=== PATIENT | female | born 1965 | race Caucasian/White ===

== ENCOUNTER → 2018-05-31 | Outpatient (CLI) | payer OTHER ==
[2018-05-31 14:24] VITALS: BP 117/72; PULSE 67; TEMP 98.1; BMI 66.1
--- NOTE | 2018-05-31 15:21 | P.HPOB ---
History of Present Illness H&P Date: 05/31/18 Chief Complaint: The patient is here for her routine gynecologic exam and mammogram. This is a 52-year-old with an LMP of 1994. She status post vaginal hysterectomy with anterior and posterior repairs for prolapse. The patient is without gynecologic complaints. She denies any significant hot flashes. She had an FSH on 10/22/2015 which was consistent with early menopause. The FSH at that time was 64.4. Review of Systems The patient has lost 3 pounds over the last 2 years. She denies respiratory, cardiac, or G.I. problems. 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 History of Any Multi-Drug Resistant Organisms: None Reported Past Surgical History: Bladder Surgery, Hysterectomy (Vaginal hysterectomy, unilateral oophorectomy with anterior and posterior repairs in 1994.), Orthopedic Surgery Additional Past Surgical History / Comment(s): carpel tunnel 2015 and 2016. 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 - Past Family History Mother Family Medical History: Diabetes Mellitus Additional Family Medical History / Comment(s): Grandfather had diabetes and another grandfather had lung cancer. Medications and Allergies Home Medications Medication Instructions Recorded Confirmed Type No Known Home Medications 12/11/17 05/31/18 History Allergies Allergy/AdvReac Type Severity Reaction Status Date / Time No Known Allergies Allergy Verified 05/31/18 14:07 Exam Vital Signs Temp Pulse BP 05/31/18 14:08 98.1 F 67 117/72 Intake and Output 05/31/18 05/31/18 05/31/18 06:59 14:59 22:59 Other: Weight 164 pounds Height 5'2", BMI 30.0. This is a well-developed well-nourished white female who is alert and oriented times 3 in no acute distress. HEENT: Within normal limits. NECK: Supple without mass or thyromegaly. CHEST AND LUNGS: Clear to auscultation. HEART: Regular rate and rhythm. BREASTS: Are without mass or discharge. AXILLARY EXAM: Negative for adenopathy. BACK: Negative for CVA tenderness. ABDOMEN: Soft, nontender, without palpable masses. PELVIC EXAM: External genitalia appears normal without significant atrophy. Vagina appears normal without significant atrophy. There is no evidence of prolapse. Bimanual examination is negative for mass or tenderness. RECTAL EXAM: Rectovaginal exam is negative for mass or tenderness and is negative for occult blood. EXTREMITIES: Nontender. IMPRESSION: 1. 52-year-old menopausal female status post vaginal hysterectomy for benign reasons. Normal gynecologic exam. PLAN: 1. Pap smears have been discontinued. 2. Self breast awareness was discussed. 3. Screening mammogram will be done today. 4. Osteoporosis prevention was discussed. 5. I have recommended screening colonoscopy based on her age. She does not want to undergo colonoscopy because of her history of hypotension with anesthesia. We discussed other alternatives such as Cologard. She will discuss these options with her primary care physician. 6. She will return in one year.
--- NOTE | 2018-06-02 09:53 | MM ---
Reason for exam: screening (asymptomatic). Last mammogram was performed 2 years and 7 months ago. History: Took hormonal contraceptives for 10 years. Physical Findings: A clinical breast exam by your physician is recommended on an annual basis and results should be correlated with mammographic findings. MG Screening Mammo w CAD Bilateral CC and MLO view(s) were taken. Prior study comparison: October 22, 2015, bilateral MG screening mammo w CAD. November 28, 2013, bilateral digital screening mammo w/CAD. The breast tissue is heterogeneously dense. This may lower the sensitivity of mammography. No significant changes when compared with prior studies. ASSESSMENT: Negative, BI-RAD 1 RECOMMENDATION: Routine screening mammogram of both breasts in 1 year.
== END | disposition home or self-care (01) ==
LOC: WWCWWP 13:20
PROVIDERS: ATTEND Obstetrics & Gynecology
DX: Z12.31 Encounter for screening mammogram for malignant neoplasm of breast (principal)
CPT/HCPCS: 77067

== ENCOUNTER → 2019-07-19 | Outpatient (CLI) | payer OTHER ==
--- NOTE | 2019-07-19 13:26 | US ---
EXAMINATION TYPE: US thyroid st tissue head/neck DATE OF EXAM: 07/19/2019 COMPARISON: NONE CLINICAL HISTORY: Z80.8 Family history of thyroid Cancer. Family history of thyroid CA, history of Alejo shimoto's thyroiditis, patient on thyroid meds GLAND SIZE: Right Lobe: 4.4 x 1.5 x 1.3 cm Overall Parenchyma: heterogenous Left Lobe: 4.2 x 1.5 x 1.1 cm Overall Parenchyma: heterogeneous Isthmus Thickness: 0.5 cm NODULES RIGHT: # of nodules measured on right: 0 LEFT: # of nodules measured on left: 0 ISTHMUS: # of nodules measured in the isthmus: 0 Bilateral neck scanned, no evidence of lymphadenopathy. Heterogeneous gland without any definite lesions seen at this time. Mildly hypervascular thyroid gland throughout. IMPRESSION: Heterogenous and mildly hypervascular thyroid gland suggestive of thyroiditis. No discrete nodules at this time.
[2019-07-19 17:05] LABS: Thyroid Peroxidase Antibodies 1001.8 U/mL (0.0-60.0)
[2019-07-19 19:36] LABS: ACTH 13.2 pg/mL (0.00-45.99)
== END | disposition home or self-care (01) ==
LOC: RADUSWWP 09:20
PROVIDERS: ATTEND Internal Medicine Endocrinology, Diabetes & Metabolism
DX: Z12.89 Encounter for screening for malignant neoplasm of other sites (principal); E03.8 Other specified hypothyroidism; R53.83 Other fatigue; Z80.8 Family history of malignant neoplasm of other organs or systems
CPT/HCPCS: 36415; 76536; 82024; 82533; 84443; 86376

== ENCOUNTER → 2019-08-03 | Outpatient (CLI) | payer OTHER ==
[2019-08-03 17:18] LABS: Chol/HDL Ratio 5.59; LDL Cholesterol,Calculated 142.8 mg/dL (0.0-131.0); VLDL Calculation 68.2 mg/dL (5.00-40.00)
== END | disposition home or self-care (01) ==
LOC: LABWHC1 09:23
PROVIDERS: ATTEND Physician Assistant
DX: E78.5 Hyperlipidemia, unspecified (principal)
CPT/HCPCS: 36415; 80061

== ENCOUNTER → 2019-08-30 | Outpatient (CLI) | payer OTHER ==
[2019-08-30 16:19] LABS: Thyroid Peroxidase Antibodies 1268.9 U/mL (0.0-60.0)
== END | disposition home or self-care (01) ==
LOC: LABWHC1 10:42
PROVIDERS: ATTEND Internal Medicine Endocrinology, Diabetes & Metabolism
DX: E03.8 Other specified hypothyroidism (principal); R53.83 Other fatigue
CPT/HCPCS: 36415; 82024; 82533; 84443; 86376

== ENCOUNTER → 2019-11-23 | Outpatient (CLI) | payer OTHER | END | disposition home or self-care (01) | LOC: LABWHC1 11:38 | PROVIDERS: ATTEND Internal Medicine Endocrinology, Diabetes & Metabolism | DX: E03.8 Other specified hypothyroidism (principal) | CPT/HCPCS: 36415; 84443 ==

== ENCOUNTER → 2019-12-20 | Outpatient (CLI) | payer OTHER ==
--- NOTE | 2019-12-21 14:28 | MM ---
Reason for exam: screening (asymptomatic). Last mammogram was performed 1 year and 7 months ago. History: Took hormonal contraceptives for 10 years. Physical Findings: A clinical breast exam by your physician is recommended on an annual basis and results should be correlated with mammographic findings. MG Screening Mammo w CAD Bilateral CC and MLO view(s) were taken. Prior study comparison: May 31, 2018, bilateral MG screening mammo w CAD. October 22, 2015, bilateral MG screening mammo w CAD. The breast tissue is heterogeneously dense. This may lower the sensitivity of mammography. There is no discrete abnormality. No significant changes when compared with prior studies. ASSESSMENT: Negative, BI-RAD 1 RECOMMENDATION: Routine screening mammogram of both breasts in 1 year.
== END | disposition home or self-care (01) ==
LOC: RADMAMWWP 15:52
PROVIDERS: ATTEND Family Medicine
DX: Z12.31 Encounter for screening mammogram for malignant neoplasm of breast (principal)
CPT/HCPCS: 77067

== ENCOUNTER → 2020-05-13 | Outpatient (CLI) | payer OTHER ==
[2020-05-13 10:37] LABS: HCT 45.1 % (34.0-46.0); HGB 14.7 gm/dL (11.4-16.0); MCH 29.4 pg (25.0-35.0); MCHC 32.6 g/dL (31.0-37.0); MCV 90.2 fL (80.0-100.0); Mean Platelet Volume 7.4; Platelet Count 264 k/uL (150-450); RDW 12.8 % (11.5-15.5); WBC 6.8 k/uL (3.8-10.6)
[2020-05-13 16:27] LABS: T4, Free (Free Thyroxine) 1.6 ng/dL (0.80-1.80)
[2020-05-13 16:46] LABS: African American GFR (CKD) 97.6 (60.0-200.0); Albumin 4.6 g/dL (3.80-4.90); Albumin/Globulin Ratio 2.09 (1.60-3.17); Anion Gap 8.1 mmol/L (4.00-12.00); BUN/Creat Ratio 16.25 Ratio (12.00-20.00); Calcium 9.7 mg/dL (8.7-10.3); Carbon Dioxide 26.9 mmol/L (21.6-31.8); Chol/HDL Ratio 5.74; Globulin 2.2 g/dL (1.6-3.3); Non-African American GFR(CKD) 84.2 (60.0-200.0); Potassium 4.2 mmol/L (3.5-5.5); Total Bilirubin 0.4 mg/dL (0.2-1.2); Total Protein 6.8 g/dL (6.2-8.2)
== END | disposition home or self-care (01) ==
LOC: LABWHC1 09:16
PROVIDERS: ATTEND Internal Medicine Endocrinology, Diabetes & Metabolism
DX: E03.8 Other specified hypothyroidism (principal); E78.5 Hyperlipidemia, unspecified; E78.1 Pure hyperglyceridemia
CPT/HCPCS: 36415; 80053; 80061; 83721; 84439; 84443; 85027; 86376

== ENCOUNTER → 2021-01-06 | Outpatient (CLI) | payer OTHER ==
[2021-01-06 15:48] LABS: T4, Free (Free Thyroxine) 1.5 ng/dL (0.80-1.80)
== END | disposition home or self-care (01) ==
LOC: LABWHC1 08:47
PROVIDERS: ATTEND Internal Medicine Endocrinology, Diabetes & Metabolism
DX: E03.8 Other specified hypothyroidism (principal)
CPT/HCPCS: 36415; 84439; 84443; 86376

== ENCOUNTER → 2021-01-07 | Outpatient (CLI) | payer OTHER ==
[2021-01-07 12:09] VITALS: BP 119/80; PULSE 72; RESP 18; TEMP 98.5
--- NOTE | 2021-01-07 13:09 | P.HPOB ---
History of Present Illness H&P Date: 01/07/21 Chief Complaint: The patient is here for her routine gynecologic exam and ma mmogram. This is a 55-year-old with an LMP of 1994. The patient is status post vaginal hysterectomy with anterior and posterior repairs for prolapse. The patient is without gynecologic complaints. Review of Systems The patient has lost 4 pounds over the last 2-1/2 years. She denies respiratory, cardiac, or G.I. problems. Past Medical History Past Medical History: Thyroid Disorder Additional Past Medical History / Comment(s): Hypothyroidism. 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 History of Any Multi-Drug Resistant Organisms: None Reported Past Surgical History: Bladder Surgery, Hysterectomy, Orthopedic Surgery Additional Past Surgical History / Comment(s): Vaginal hysterectomy with anterior and posterior repairs in 1994. carpel tunnel 2015 and 2016. Colonoscopy 2019(next after 10yr) Past Psychological History: No Psychological Hx Reported Smoking Status: Never smoker Past Alcohol Use History: Rare (2 per Year) Past Drug Use History: None Reported Additional History: She has been since 1984. 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 - Past Family History Mother Family Medical History: Diabetes Mellitus Additional Family Medical History / Comment(s): Grandfather had diabetes and a nother grandfather had lung cancer. Medications and Allergies Home Medications Medication Instructions Recorded Confirmed Type Levothyroxine Sodium [Synthroid] 75 mcg PO DAILY 01/07/21 01/07/21 History Allergies Allergy/AdvReac Type Severity Reaction Status Date / Time No Known Allergies Allergy Verified 01/07/21 11:56 Exam Vital Signs Temp Pulse Resp BP Pulse Ox 01/07/21 11:00 98.5 F 72 18 119/80 96 Intake and Output 01/06/21 01/07/21 01/07/21 22:59 06:59 14:59 Other: Weight 72.575 kg Height 5 feet 2 inches, weight 160 pounds, BMI 29.3. This is a well-developed well-nourished white female who is alert and oriented times 3 in no acute distress. HEENT: Within normal limits. NECK: Supple without mass or thyromegaly. CHEST AND LUNGS: Clear to auscultation. HEART: Regular rate and rhythm. BREASTS: Are without mass or discharge. AXILLARY EXAM: Negative for adenopathy. BACK: Negative for CVA tenderness. ABDOMEN: Soft, nontender, without palpable masses. PELVIC EXAM: External genitalia appears normal with mild atrophy. Vagina appears normal mild atrophy. There is no evidence of prolapse. Bimanual examination is negative for mass or tenderness. RECTAL EXAM: Rectovaginal exam is negative for mass or tenderness and is negative for occult blood. EXTREMITIES: Nontender. IMPRESSION: 1. 55 year-old menopausal female status post vaginal hysterectomy with anterior and posterior repairs with normal gynecologic exam. PLAN: 1. Pap smears have been discontinued. 2. Self breast awareness was discussed with the patient. 3. Mammogram was done today. 4. Osteoporosis prevention was discussed. I have stressed the importance of adequate calcium, vitamin D and regular exercise. Recommended amounts of calcium and vitamin D were also discussed. 5. She was advised to return in one year for her annual well woman exam.
--- NOTE | 2021-01-09 10:47 | MM ---
Reason for exam: screening (asymptomatic). Last mammogram was performed 1 year and 1 month ago. History: Patient is postmenopausal. Took hormonal contraceptives for 10 years. Physical Findings: A clinical breast exam by your physician is recommended on an annual basis and results should be correlated with mammographic findings. MG 3D Screening Mammo W/Cad Bilateral CC and MLO view(s) were taken. Prior study comparison: December 20, 2019, bilateral MG screening mammo w CAD. May 31, 2018, bilateral MG screening mammo w CAD. The breast tissue is heterogeneously dense. This may lower the sensitivity of mammography. Faint grouped calcifications lateral posterior left CC view are unchanged. No significant changes when compared with prior studies. ASSESSMENT: Negative, BI-RAD 1 RECOMMENDATION: Routine screening mammogram of both breasts in 1 year.
== END | disposition home or self-care (01) ==
LOC: WWCWWP 11:00
PROVIDERS: ATTEND Obstetrics & Gynecology
DX: Z12.31 Encounter for screening mammogram for malignant neoplasm of breast (principal)
CPT/HCPCS: 77063; 77067

== ENCOUNTER → 2021-05-13 | Outpatient (CLI) | payer OTHER ==
--- NOTE | 2021-05-13 09:57 | US ---
EXAMINATION TYPE: US thyroid st tissue head/neck DATE OF EXAM: 05/13/2021 COMPARISON: 07/19/2019 CLINICAL HISTORY: E03.8 HYPOTHYROIDISM. Hypothyroidism GLAND SIZE: Right Lobe: 4.0 x 1.3 x 1.2 cm Overall Parenchyma: heterogenous Left Lobe: 3.8 x 1.0 x 1.2 cm Overall Parenchyma: heterogeneous Isthmus Thickness: .5 cm NODULES RIGHT: # of nodules measured on right: 0 LEFT: # of nodules measured on left: 0 ISTHMUS: # of nodules measured in the isthmus: 0 Bilateral neck scanned, no evidence of lymphadenopathy. IMPRESSION: Diffuse heterogeneous liver parenchyma. No discrete nodule is seen.
== END | disposition home or self-care (01) ==
LOC: RADUSWWP 08:47
PROVIDERS: ATTEND Internal Medicine Endocrinology, Diabetes & Metabolism
DX: E03.9 Hypothyroidism, unspecified (principal)
CPT/HCPCS: 76536

== ENCOUNTER → 2021-06-09 | Outpatient (CLI) | payer OTHER ==
[2021-06-09 16:15] LABS: T4, Free (Free Thyroxine) 1.3 ng/dL (0.80-1.80)
== END | disposition home or self-care (01) ==
LOC: LABWHC1 09:50
PROVIDERS: ATTEND Internal Medicine Endocrinology, Diabetes & Metabolism
DX: E03.8 Other specified hypothyroidism (principal)
CPT/HCPCS: 36415; 84439; 84443; 86376

== ENCOUNTER → 2022-01-01 | Outpatient (CLI) | payer OTHER ==
[2022-01-01 15:50] LABS: African American GFR (CKD) 84.6 (60.0-200.0); Albumin 4.8 g/dL (3.8-4.9); Albumin/Globulin Ratio 2.03 (1.60-3.17); Anion Gap 14.1 mmol/L (10.00-18.00); BUN/Creat Ratio 13.71 Ratio (12.00-20.00); Blood Urea Nitrogen 12.2 mg/dL (9.0-27.0); Calcium 9.8 mg/dL (8.7-10.3); Carbon Dioxide 23.1 mmol/L (20.0-27.5); Globulin 2.3 g/dL (1.6-3.3); Total Bilirubin 0.4 mg/dL (0.30-1.20); Total Protein 7.1 g/dL (6.2-8.2)
== END | disposition home or self-care (01) ==
LOC: LABWHC1 08:41
PROVIDERS: ATTEND Internal Medicine Endocrinology, Diabetes & Metabolism
DX: E03.8 Other specified hypothyroidism (principal); Z83.3 Family history of diabetes mellitus
CPT/HCPCS: 36415; 80053; 83036; 84443

== ENCOUNTER → 2022-10-30 | Outpatient (CLI) | payer OTHER ==
[2022-10-30 15:35] LABS: African American GFR (CKD) 82.8 (60.0-200.0); Albumin 4.5 g/dL (3.8-4.9); Albumin/Globulin Ratio 1.96 (1.60-3.17); Anion Gap 11.2 mmol/L (10.00-18.00); BUN/Creat Ratio 16.78 Ratio (12.00-20.00); Blood Urea Nitrogen 15.1 mg/dL (9.0-27.0); Calcium 9.7 mg/dL (8.7-10.3); Carbon Dioxide 23.8 mmol/L (20.0-27.5); Globulin 2.3 g/dL (1.6-3.3); Non-African American GFR(CKD) 71.5 (60.0-200.0); Potassium 4.1 mmol/L (3.5-5.5); Total Bilirubin 0.5 mg/dL (0.30-1.20); Total Protein 6.8 g/dL (6.2-8.2)
== END | disposition home or self-care (01) ==
LOC: LABWHC1 08:38
PROVIDERS: ATTEND Internal Medicine Endocrinology, Diabetes & Metabolism
DX: E03.8 Other specified hypothyroidism (principal); Z83.3 Family history of diabetes mellitus
CPT/HCPCS: 36415; 80053; 83036; 84443

== ENCOUNTER → 2023-03-10 | Outpatient (CLI) | payer OTHER | END | disposition home or self-care (01) | LOC: LABWHC1 12:43 | PROVIDERS: ATTEND Internal Medicine Endocrinology, Diabetes & Metabolism | DX: E03.8 Other specified hypothyroidism (principal) | CPT/HCPCS: 36415; 84443 ==

== ENCOUNTER → 2023-03-25 | Outpatient (CLI) | payer OTHER ==
--- NOTE | 2023-03-26 18:30 | MM ---
Reason for Exam: Screening (asymptomatic). Last screening mammogram was performed 12 month(s) ago. Patient History: Menarche at age 12. First Full-Term at age 25. Left ovary removed at age 31. Hysterectomy at age 31. Postmenopausal. Patient used Hormonal Contraceptives for 10 years. Risk Values: Janie 5 year model risk: 1.2%. NCI Lifetime model risk: 7.9%. Prior Study Comparison: 12/20/2019 Bilateral Screening Mammogram, [facility]. 01/07/2021 Bilateral Screening Mammogram, [facility]. 03/17/2022 Bilateral Screening Mammogram, [facility]. Tissue Density: The breast tissue is heterogeneously dense. This may lower the sensitivity of mammography. Findings: Analyzed By CAD. There is no suspicious group of microcalcifications or new suspicious mass in either breast. Overall Assessment: Negative, BI-RAD 1 Management: Screening Mammogram of both breasts in 1 year. . Patient should continue monthly self-breast exams. A clinical breast exam by your physician is recommended on an annual basis. This exam should not preclude additional follow-up of suspicious palpable abnormalities. Note on Janie scores and lifetime risk: 1. A Janie score greater than 3% is considered moderate risk. If this is the case, consider specialist referral to assess eligibility for a risk reducing agent. 2. If overall lifetime risk for the development of breast cancer is 20% or higher, the patient may qualify for future screening with alternating mammogram and breast MRI. Electronically signed and approved by: Kenneth Fong M.D. Radiologist
== END | disposition home or self-care (01) ==
LOC: RADMAMWWP 16:44
PROVIDERS: ATTEND Family Medicine
DX: Z12.31 Encounter for screening mammogram for malignant neoplasm of breast (principal); Z78.0 Asymptomatic menopausal state
CPT/HCPCS: 77063; 77067

== ENCOUNTER → 2023-04-27 | Outpatient (CLI) | payer OTHER ==
[2023-04-27 09:38] VITALS: BP 111/74; PULSE 97; RESP 17; TEMP 98.2
--- NOTE | 2023-04-27 10:24 | P.HPOB ---
History of Present Illness H&P Date: 04/27/23 Chief Complaint: The patient is here for her routine gynecologic exam. This is a 57-year-old with an LMP of 1994. The patient is status post vaginal hysterectomy and a and P repairs. The patient has been seen Dr. Alegria for vaginal prolapse. 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 She has been getting treatments with electrical stimulation via a "Kegal chair" through Dr. Alegria and states this has been helpful. This has been helpful for the feeling of the bladder dropping. She has also been using estrogen cream for vaginal dryness which has also been helpful. She saw a specialist that suggested some type of laparoscopic vault suspension which she is currently not interested in doing at this time. She occasionally has slight urinary leakage, but not a big problem. Review of Systems The patient has gained 8 pounds over the last year. She denies respiratory, cardiac, or G.I. problems. Past Medical History Past Medical History: Thyroid Disorder Additional Past Medical History / Comment(s): Hypothyroidism. 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 History of Any Multi-Drug Resistant Organisms: None Reported Past Surgical History: Bladder Surgery, Hysterectomy, Orthopedic Surgery Additional Past Surgical History / Comment(s): Vaginal hysterectomy with anterior and posterior repairs in 1994. Later cystocele repair. Bladder sling procedure. carpel tunnel 2015 and 2016. Colonoscopy 2019(next after 10yr) Past Psychological History: No Psychological Hx Reported Smoking Status: Never smoker Past Alcohol Use History: Rare (0-2 per year.) Past Drug Use History: None Reported Additional History: She has been since 1984 and is retired. She has 1 grandson in [place]. - Past Family History Mother Family Medical History: Diabetes Mellitus Additional Family Medical History / Comment(s): Grandfather had diabetes and another grandfather had lung cancer. Father Family Medical History: Cancer (Lung cancer.) Medications and Allergies Home Medications Medication Instructions Recorded Confirmed Type Levothyroxine Sodium [Synthroid] 75 mcg PO DAILY 01/07/21 04/27/23 History Estradiol Cream [Estrace Cream 1 applic VAGINAL DIRECTED PRN 04/27/23 04/27/23 History 0.01%] Allergies Allergy/AdvReac Type Severity Reaction Status Date / Time No Known Allergies Allergy Verified 04/27/23 09:32 Exam Vital Signs Temp Pulse Resp BP Pulse Ox 04/27/23 09:34 98.2 F 97 17 111/74 96 Intake and Output 04/26/23 04/27/23 04/27/23 22:59 06:59 14:59 Other: Weight 76.204 kg Height 5 feet 2 inches, weight 168 pounds, BMI 30.7. This is a well-developed well-nourished white female who is alert and oriented times 3 in no acute distress. HEENT: Within normal limits. NECK: Supple without mass or thyromegaly. CHEST AND LUNGS: Clear to auscultation. HEART: Regular rate and rhythm. BREASTS: Are without mass or discharge. AXILLARY EXAM: Negative for adenopathy. BACK: Negative for CVA tenderness. ABDOMEN: Soft, nontender, without palpable masses. PELVIC EXAM: External genitalia appears normal with mild atrophy. Vagina appears normal mild atrophy. There is a grade 1-2 cystocele at rest which increases to a grade 2-3 cystocele with Valsalva. Also a drop in the vaginal vault is noted in this would be a grade 2 prolapse. There is no significant rectocele. Bimanual examination is negative for mass or tenderness. RECTAL EXAM: Rectovaginal exam is negative for mass or tenderness and is nega tive for occult blood. EXTREMITIES: Nontender. IMPRESSION: 1. 57-year-old menopausal female status post vaginal hysterectomy with anterior and posterior repairs, with a grade 2-3 cystocele and grade 2 vaginal vault prolapse which is mildly symptomatic. 2. Vaginal dryness which has improved with estrogen cream. PLAN: 1. Pap smears have been discontinued. 2. Self breast awareness was discussed with the patient. We have also discussed symptoms associated with inflammatory breast cancer. 3. Screening mammogram done on 03/25/2023 was negative. 4. We have had a long discussion regarding the vaginal prolapse. She would like to continue with conservative measures and this will include the electrostimulation treatments that she has been doing through Dr. Alegria. We have also discussed negative Valsalva exercises which she can do on a regular basis. We will consider referral to a CREDIT PORTFOLIO ADVISOR urologist, Dr. Dalton Blood if she would like a second opinion about the prolapse. 5. Osteoporosis prevention was discussed. I have stressed the importance of adequate calcium, vitamin D and regular exercise. Recommended amounts of calcium and vitamin D were also discussed. 6. Weight control was discussed. I stressed importance of good nutrition, regular exercise and adequate fiber. Also the importance of regular meals was discussed. 7. She was advised to return in one year for her annual well woman exam and as needed.
== END ==
LOC: WWCWWP 09:28
PROVIDERS: ATTEND Obstetrics & Gynecology
DX: Z90.710 Acquired absence of both cervix and uterus (principal); N89.8 Other specified noninflammatory disorders of vagina; E03.9 Hypothyroidism, unspecified; Z79.890 Hormone replacement therapy

== ENCOUNTER → 2023-09-13 | Outpatient (CLI) | payer OTHER | END | disposition home or self-care (01) | LOC: LABWHC1 10:17 | PROVIDERS: ATTEND Internal Medicine Endocrinology, Diabetes & Metabolism | DX: E03.8 Other specified hypothyroidism (principal) | CPT/HCPCS: 36415; 84443 ==

== ENCOUNTER → 2024-03-14 | Outpatient (CLI) | payer OTHER | END | disposition home or self-care (01) | LOC: LABWHC1 07:31 | PROVIDERS: ATTEND Internal Medicine Endocrinology, Diabetes & Metabolism | DX: E03.8 Other specified hypothyroidism (principal) | CPT/HCPCS: 36415; 84443 ==

== ENCOUNTER → 2024-07-29 | Outpatient (CLI) | payer OTHER | LOC: LABWHC1 09:40 | PROVIDERS: ATTEND Internal Medicine Endocrinology, Diabetes & Metabolism | DX: E03.8 Other specified hypothyroidism (principal); R73.03 Prediabetes | CPT/HCPCS: 36415; 82533; 83036; 84443 ==

== ENCOUNTER → 2024-08-23 | Outpatient (CLI) | payer OTHER ==
[2024-08-23 10:38] VITALS: BP 101/63; PULSE 77; RESP 16; TEMP 98.3
--- NOTE | 2024-08-23 11:41 | P.HPOB ---
History of Present Illness H&P Date: 08/23/24 Chief Complaint: The patient is here for her routine gynecologic exam and ma mmogram. This is a 59-year-old G2, P2 with an LMP of 1994. She is status post vaginal hysterectomy with anterior and posterior repairs for benign reasons. The patient has a history of vaginal vault prolapse with a cystocele. She continues to do treatments with an electrical stimulation unit and she goes in for this every 3 months. She denies anything protruding from the vagina. There are fatimah es when she does feel that the vagina is dropping, but does not seem to be causing major problems. She saw a specialist, Dr Chapman who offered a vaginal vault suspension that could be done laparoscopically or continuing treatments with the Kegel chair. She has continued with the conservative management. She is otherwise without gynecologic complaints Review of Systems The patient has lost 4 pounds over the last year. She denies respiratory, cardiac, or G.I. problems. Past Medical History Past Medical History: Thyroid Disorder Additional Past Medical History / Comment(s): Hypothyroidism. 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 History of Any Multi-Drug Resistant Organisms: None Reported Past Surgical History: Bladder Surgery, Hysterectomy, Orthopedic Surgery Additional Past Surgical History / Comment(s): Vaginal hysterectomy with anterior and posterior repairs in 1994. Later cystocele repair. Bladder sling procedure. carpel tunnel 2015 and 2016. Colonoscopy 2019(next after 10yr) Past Psychological History: No Psychological Hx Reported Smoking Status: Never smoker Past Alcohol Use History: Rare (4 drinks per year.) Past Drug Use History: None Reported Additional History: She has been since 1984 and is retired. - Past Family History Mother Family Medical History: Diabetes Mellitus Additional Family Medical History / Comment(s): Grandfather had diabetes and another grandfather had lung cancer. Father Family Medical History: Cancer Medications and Allergies Home Medications Medication Instructions Recorded Confirmed Type Levothyroxine Sodium [Synthroid] 75 mcg PO DAILY 01/07/21 08/23/24 History Estradiol Cream [Estrace Cream 1 applic VAGINAL DIRECTED PRN 04/27/23 08/23/24 History 0.01%] Allergies Allergy/AdvReac Type Severity Reaction Status Date / Time No Known Allergies Allergy Verified 08/23/24 10:35 Exam Vital Signs Temp Pulse Resp BP Pulse Ox 08/23/24 10:36 98.3 F 77 16 101/63 97 Intake and Output 08/22/24 08/23/24 08/23/24 22:59 06:59 14:59 Other: Weight 74.389 kg Height 5 feet 2 inches, weight 164 pounds, BMI 30.0. This is a well-developed well-nourished white female who is alert and oriented times 3 in no acute distress. HEENT: Within normal limits. NECK: Supple without mass or thyromegaly. CHEST AND LUNGS: Clear to auscultation. HEART: Regular rate and rhythm. BREASTS: Are without mass or discharge. AXILLARY EXAM: Negative for adenopathy. BACK: Negative for CVA tenderness. ABDOMEN: Soft, nontender, without palpable masses. PELVIC EXAM: External genitalia appears normal with mild atrophy. Vagina appears normal with mild atrophy. At rest there is a minimal cystocele. With Valsalva there is a grade 2 cystocele with some grade 2 vaginal vault prolapse. There is no significant rectocele noted. Bimanual examination is negative for mass or tenderness. RECTAL EXAM: Rectovaginal exam is negative for mass or tenderness and is negative for occult blood. EXTREMITIES: Nontender. IMPRESSION: 1. 59-year-old female status post vaginal hysterectomy with anterior and posterior repairs, with small cystocele and vaginal vault prolapse which is mildly symptomatic. PLAN: 1. Pap smears have been discontinued. 2. Self breast awareness was discussed with the patient. We have also discussed symptoms associated with inflammatory breast cancer. 3. Screening mammogram will be done today. 4. Osteoporosis prevention was discussed. I have stressed the importance of adequate calcium, vitamin D and regular exercise. Recommended amounts of calcium and vitamin D were also discussed. 5. She will continue to follow-up for her electrical Kegel stimulation sessions and she can also follow-up with Dr. Rowley if she is having worsening symptoms. 6. Negative Valsalva exercises were discussed. She can do these on a regular basis if she is feeling vaginal pressure or prior to urinating. 7. She was advised to return in one year for her annual well woman exam and as needed.
--- NOTE | 2024-08-24 08:37 | MM ---
Reason for Exam: Screening (asymptomatic). Last mammogram was performed 1 year(s) and 5 month(s) ago. Patient History: Menarche at age 12. First Full-Term at age 25. Left ovary removed at age 31. Hysterectomy at age 31. Postmenopausal. Patient used Hormonal Contraceptives for 10 years. Risk Values: Janie 5 year model risk: 1.3%. NCI Lifetime model risk: 7.6%. Prior Study Comparison: 01/07/2021 Bilateral Screening Mammogram, [facility]. 03/17/2022 Bilateral Screening Mammogram, [facility] 03/25/2023 Bilateral MG 3D screening mammo w/cad, [facility]. Tissue Density: The breasts are heterogeneously dense, which may obscure small masses. Findings: Analyzed By CAD. Right breast: There is no suspicious group of microcalcifications or new suspicious mass. Left breast: There is no suspicious group of microcalcifications or new suspicious mass. Overall Assessment: Negative, BI-RAD 1 Management: Screening Mammogram of both breasts in [address] [facility] will attempt to contact patient to return for supplemental views and ultrasound if indicated. Patient should continue monthly self-breast exams. A clinical breast exam by your physician is recommended on an annual basis. This exam should not preclude additional follow-up of suspicious palpable abnormalities. Note on Janie scores and lifetime risk: 1. A Janie score greater than 3% is considered moderate risk. If this is the case, consider specialist referral to assess eligibility for a risk reducing agent. 2. If overall lifetime risk for the development of breast cancer is 20% or higher, the patient may qualify for future screening with alternating mammogram and breast MRI. [facility], , 08/24/2024 8:34 AM. Electronically signed and approved by: Velasquez Philippe DO
== END ==
LOC: WWCWWP 10:23
PROVIDERS: ATTEND Obstetrics & Gynecology
CPT/HCPCS: 77063; 77067

== ENCOUNTER → 2025-03-19 | Outpatient (CLI) | payer OTHER ==
--- NOTE | 2025-03-19 11:27 | US ---
EXAMINATION TYPE: US carotid duplex BILAT DATE OF EXAM: 03/19/2025 COMPARISON: NONE CLINICAL INDICATION: Female, 59 years old with history of I65.23 STENOSIS OF BILATERAL CAROTID ARTERI ES; family h/o CVD, and strokes, no symptoms per patient Additional History: .... TECHNIQUE: Grayscale, color Doppler and spectral Doppler evaluation of the bilateral carotid systems and vertebral arteries. Indirect Doppler criteria was utilized. FINDINGS: EXAM MEASUREMENTS: RIGHT: Peak Systolic Velocity (PSV) cm/sec ----- Right CCA: 87.7 ----- Right ICA: 121.0 ----- Right ECA: 87.9 ICA/CCA ratio: 1.4 RIGHT: End Diastole cm/sec ----- Right CCA: 22.1 ----- Right ICA: 31.2 ----- Right ECA: 12.3 LEFT: Peak Systolic Velocity (PSV) cm/sec ----- Left CCA: 81.7 ----- Left ICA: 119.0 ----- Left ECA: 103.0 ICA/CCA ratio: 1.5 LEFT: End Diastole cm/sec ----- Left CCA: 22.1 ----- Left ICA: 29.9 ----- Left ECA: 14.3 VERTEBRALS (direction of flow): Right Vertebral: Antegrade Left Vertebral: Antegrade Rhythm: Normal CORN DETASSELER NOTES: Mild homogeneous plaque with no stenosis seen Color Doppler imaging shows patency with blood flow throughout the carotid artery. Spectral waveforms are within normal limits. IMPRESSION: Right: Less than 50% stenosis of the carotid bifurcation. Left: Less than 50% stenosis of the carotid bifurcation. Criteria for Assigning % of Stenosis / Diameter reduction (Estimation based on the indirect measurements of the internal carotid artery velocities (ICA PSV). 1. Normal (no stenosis)=ICA PSV < 180 cm/s: ratio < 2.0: ICA EDV<40 cm/s. 2. Less than 50% stenosis=ICA PSV < 180 cm/s: ratio < 2.0: ICA EDV<40 cm/s. 3. 50 to 69% stenosis=ICA PSV of 180 to 230 cm/s: ration 2.0 ? 4.0: ICA EDV 40-100 cm/s. PSV 125-180 cm/sec and ICA/CCA PSV Ratio ? 2.0 is also consistent with 50-69% stenosis 4. Greater than 70% stenosis to near occlusion= ICA PSV > 230 cm/s: ratio > 4.0: ICA EDV > 100 cm/s. 5. Near occlusion= ICA PSV velocities may be low or undetectable: variable ratio and ICA EDV. 6. Total occlusion=unable to detect flow. [facility], , 03/19/2025 11:24 AM
== END | disposition home or self-care (01) ==
LOC: RADUSWWP 10:43
PROVIDERS: ATTEND Internal Medicine
DX: I65.23 Occlusion and stenosis of bilateral carotid arteries (principal)
CPT/HCPCS: 93880

== ENCOUNTER → 2025-04-21 | Outpatient (CLI) | payer OTHER ==
[2025-04-21 13:17] LABS: Microalbumin Creatinine Ratio <9 mg/g Cr (0-30)
[2025-04-21 13:34] LABS: ALT 27 U/L (8-44); AST 26 U/L (13-35); Albumin 4.4 g/dL (3.8-4.9); Alkaline Phosphatase 62 U/L (41-126); BUN/Creat Ratio 19.71 Ratio (12.00-20.00); Blood Urea Nitrogen 13.8 mg/dL (9.0-27.0); Calcium 9.3 mg/dL (8.7-10.3); Chloride 105 mmol/L (96-109); Globulin 2.1 g/dL (1.6-3.3); Glucose 114 mg/dL (70-110); LDL Cholesterol,Calculated 67.1 mg/dL (0.0-131.0); Potassium 4.1 mmol/L (3.5-5.5); Sodium 140 mmol/L (135-145); Total Bilirubin 0.4 mg/dL (0.3-1.2); Total Protein 6.5 g/dL (6.2-8.2)
== END | disposition home or self-care (01) ==
LOC: LABWHC1 08:19
PROVIDERS: ATTEND Internal Medicine Endocrinology, Diabetes & Metabolism
DX: E11.9 Type 2 diabetes mellitus without complications (principal)
CPT/HCPCS: 36415; 80053; 80061; 82043; 82570; 83036; 84443